=== PATIENT | male | born 1970 ===

== ENCOUNTER 2016-11-11 15:56 | Emergency (ER) | payer BC ==
[2016-11-11 16:10] VITALS: BP 131/65
[2016-11-11] MEDS ORDERED: Tetan/Diph/Pertus SYR(Tdap)* 0.5 ML SYR(BOOSTRIX) use SYR IM ONE (16:50)
--- NOTE | 2016-11-11 16:52 | ED ---
Skin Complaint - History of Current Complaint Chief Complaint: UCSkin Time Seen by Provider: 11/11/16 16:43 Stated Complaint: ANKLE PUNCTURE PRASANNA NAIL Hx Obtained From: Patient - scraped inside of R ankle on prasanna nail today Onset/Duration: Started Hours Ago - 2 Skin Location: Foot - R ankle Aggravating Symptom(s): Nothing Alleviating Symptom(s): Nothing Associated Signs & Symptoms: Negative - Allergy/Home Medications Allergies/Adverse Reactions: Allergies Allergy/AdvReac Type Severity Reaction Status Date / Time No Known Allergies Allergy Verified 11/11/16 16:10 Home Medications: Home Medications NK [No Home Medications Reported] 11/11/16 [History Confirmed 11/11/16] PMH/Surg Hx/FS Hx/Imm Hx Previously Healthy: Yes - Immunization History Immunizations Up to Date: No Infectious Disease History: No Infectious Disease History: Denies: Traveled Outside the [place] in Last 30 Days - Family History Known Family History: Positive: None - Social History Occupation: Employed Full-time Lives: With Family Alcohol Use: None Substance Use Type: Reports: None Smoking Status (MU): Never Smoked Tobacco Review of Systems Constitutional: Negative Cardiovascular: Negative Respiratory: Negative Positive: Other - PW Neurological: Negative Psychological: Normal All Other Systems Reviewed And Are Negative: Yes Physical Exam Triage Information Reviewed: Yes Vital Signs On Initial Exam: Initial Vitals Temp Pulse Resp BP Pulse Ox 97.9 F 65 12 131/65 100 11/11/16 16:05 11/11/16 16:05 11/11/16 16:05 11/11/16 16:05 11/11/16 16:05 Vital Signs Reviewed: Yes Appearance: Positive: Well-Appearing, No Pain Distress, Well-Nourished Skin: Positive: Other - small superficial abrasion medial R ankle Respiratory/Lung Sounds: Positive: Clear to Auscultation Cardiovascular: Positive: Normal Psychiatric: Positive: Normal Diagnostics - Vital Signs Vital Signs Temp Pulse Resp BP Pulse Ox 11/11/16 16:05 97.9 F 65 12 131/65 100 - Laboratory Lab Statement: Any lab studies that have been ordered have been reviewed, and results considered in the medical decision making process. Course/Dx - Differential Diagnoses - Skin Complaint Differential Diagnoses: Other - PW, abrasion - Diagnoses Provider Diagnoses: Abrasion, right ankle, initial encounter Discharge - Discharge Plan Condition: Good Disposition: HOME Patient Education Materials: Abrasion (ED), Diphtheria/Acellular Pertussis/ Tetanus Vaccine (By injection) Additional Instructions: keep wound clean and dry report signs of infection
== END 2016-11-11 17:34 | disposition home or self-care (01) ==
LOC: UCEAST 15:56
DX: S90.511A Abrasion, right ankle, initial encounter (principal); X58.XXXA Exposure to other specified factors, initial encounter
CPT/HCPCS: 90471; 90715; 99201; G0463

== ENCOUNTER 2017-12-24 15:25 | Emergency (ER) | payer BC ==
[2017-12-24 15:41] VITALS: BP 117/72
--- NOTE | 2017-12-24 16:13 | UC ---
Hand/Wrist HPI - HPI Summary HPI Summary: 47 yo male presents with a LEFT 5th finger injury. He tells me that earlier today he was working at home and was moving a concrete block when he squished his left pinky finger between this a rock. Sustained a laceration here. He bandaged the area and continued with his day. Last tetanus was within the last 2 years. Denies numbness or tingling. - History Of Current Complaint Chief Complaint: UCUpperExtremity Stated Complaint: FINGER INJURY Time Seen by Provider: 12/24/17 16:13 Hx Obtained From: Patient Onset/Duration: Sudden Onset Severity Initially: Moderate Severity Currently: Mild Pain Intensity: 2 Pain Scale Used: 0-10 Numeric - Allergies/Home Medications Allergies/Adverse Reactions: Allergies Allergy/AdvReac Type Severity Reaction Status Date / Time No Known Allergies Allergy Verified 12/24/17 15:41 PMH/Surg Hx/FS Hx/Imm Hx - Additional Past Medical History Additional PMH: None - Surgical History Surgical History: None - Family History Known Family History: Positive: None - Social History Occupation: Employed Full-time Lives: With Family Alcohol Use: None Substance Use Type: None Smoking Status (MU): Never Smoked Tobacco - Immunization History Most Recent Tetanus Shot: 11/11/16 Review of Systems Constitutional: Negative Skin: Other - Laceration left 5th digit Respiratory: Negative Cardiovascular: Negative Neurovascular: Negative Musculoskeletal: Negative Neurological: Negative Psychological: Negative All Other Systems Reviewed And Are Negative: Yes Physical Exam - Summary Physical Exam Summary: GENERAL: NAD. WDWN. No pain distress. SKIN: LEFT 5th digit: dorsal aspect overlying the PIP there is a flap like laceration in a V shape 1.0cm in size. No bony or tendon involvement. On the ventral aspect there is a 5mm puncture laceration below the PIP with exposed subcutaneous tissue. No bony or tendon involvement. CHEST: No accessory muscle use. Breathing comfortably and in no distress. CV: Pulses intact. Cap refill <2seconds MSK: Left 5th digit: FROM at DIP, PIP, and MCP without pain. NEURO: Alert. Sensations intact left hand and 5th digit. PSYCH: Age appropriate behavior. Triage Information Reviewed: Yes Vital Signs: Initial Vital Signs Temp 98.2 F 12/24/17 15:36 Pulse 77 12/24/17 15:36 Resp 16 12/24/17 15:36 BP 117/72 12/24/17 15:36 Pulse Ox 98 12/24/17 15:36 Vital Signs Reviewed: Yes Hand/Wrist Course/Dx - Course Course Of Treatment: XR: IMPRESSION: NO ACUTE OSSEOUS INJURY. IF SYMPTOMS PERSIST, RECOMMEND REPEAT IMAGING. A time out was performed, witnessed, and signed. The area was irrigated with 500mL sterile saline. 2mL of 2% lidocaine without epi was administered as a digital block and good anesthetization was achieved. In the usual sterile fashion, FOUR 5-0 prolene interrupted sutures were placed on the dorsal surface and TWO 5-0 prolene interrupted sutures were placed on the ventral wound. The wound was bandaged with telfa and tubgauze. Pt tolerated procedure well. - Differential Dx/Diagnosis Provider Diagnoses: Laceration left 5th digit. Crush injury left 5th digit Discharge - Sign-Out/Discharge Documenting (check all that apply): Patient Departure All imaging exams completed and their final reports reviewed: Yes - Discharge Plan Condition: Stable Disposition: HOME Patient Education Materials: Care For Your Stitches (DC), Laceration (ED) Referrals: No Primary Care Phys,NOPCP [Primary Care Provider] - Additional Instructions: If you develop a fever, shortness of breath, chest pain, new or worsening symptoms - please call your PCP or go to the ED. 1) Please keep the area bandaged, clean, dry, and intact for the next 24- 48hours. 2) If you develop a fever, colored or thick discharge, increased pain or swelling - please call your PCP or go to the ED. 3) Please return in 10 days to have your SIX sutures removed. - Billing Disposition and Condition Condition: STABLE Disposition: Home - Attestation Statements Provider Attestation: I was available for consult. This patient was seen by the EITAN. The patient was not presented to, seen by, or examined by me. -Keshawn
[2017-12-24] MEDS ORDERED: Lidocaine 2% PF * 5 ML VIAL INJ ONE (16:27)
--- NOTE | 2017-12-24 18:03 | RAD ---
HISTORY: Crush COMPARISONS: None VIEWS: 3 , Frontal, lateral, and oblique views of the fifth digit of the left hand FINDINGS: BONE DENSITY: Normal. BONES: There is no displaced fracture. JOINTS: There is no arthropathy. ALIGNMENT: There is no dislocation. SOFT TISSUES: Unremarkable. OTHER FINDINGS: None. IMPRESSION: NO ACUTE OSSEOUS INJURY. IF SYMPTOMS PERSIST, RECOMMEND REPEAT IMAGING.
== END 2017-12-24 18:35 | disposition home or self-care (01) ==
LOC: UCEAST 15:25
CPT/HCPCS: 12001; 73140; 99211; G0463

== ENCOUNTER 2018-01-04 12:45 | Emergency (ER) | payer BC ==
[2018-01-04 13:16] VITALS: BP 110/65
--- NOTE | 2018-01-04 13:34 | UC ---
HPI Wound/Suture Re-check - HPI Summary HPI Summary: HAD SUTURES PLACED LEFT 5TH FINGER 12/24/17. HERE FOR REMOVAL. LACERATION HEALED WELL. NO DRAINAGE, REDNESS OR TENDERNESS. - History Of Current Complaint Chief Complaint: UCLaceration Stated Complaint: STITCH REMOVAL Time Seen by Provider: 01/04/18 13:22 Hx Obtained From: Patient Severity: Mild Pain Intensity: 0 Pain Scale Used: 0-10 Numeric - Allergies/Home Medications Allergies/Adverse Reactions: Allergies Allergy/AdvReac Type Severity Reaction Status Date / Time No Known Allergies Allergy Verified 01/04/18 13:16 PMH/Surg Hx/FS Hx/Imm Hx Previously Healthy: Yes - Surgical History Surgical History: None - Family History Known Family History: Positive: None - Social History Alcohol Use: None Substance Use Type: None Smoking Status (MU): Never Smoked Tobacco - Immunization History Most Recent Tetanus Shot: 11/11/16 Review of Systems Constitutional: Negative Skin: Other - HEALING LACERATION LEFT 5TH FINGER Respiratory: Negative Cardiovascular: Negative Gastrointestinal: Negative All Other Systems Reviewed And Are Negative: Yes Physical Exam Triage Information Reviewed: Yes Appearance: Well-Appearing, No Pain Distress, Well-Nourished Vital Signs: Initial Vital Signs Temp 97 F 01/04/18 13:14 Pulse 72 01/04/18 13:14 Resp 16 01/04/18 13:14 BP 110/65 01/04/18 13:14 Pulse Ox 100 01/04/18 13:14 Vital Signs Reviewed: Yes Eyes: Positive: Conjunctiva Clear ENT: Positive: Hearing grossly normal Neck: Positive: Supple Respiratory: Positive: No respiratory distress, No accessory muscle use Cardiovascular: Positive: Pulses Normal Abdomen Description: Positive: Soft Musculoskeletal: Positive: No Edema Neurological: Positive: Alert Psychological: Positive: Age Appropriate Behavior Skin: Positive: Other - LACERATION WELL HEALED. C/D/I. NON TENDER. NO DRAINAGE. Negative: rashes Course/Dx - Differential Dx - Laceration/Wound Provider Diagnoses: SUTURE REMOVAL Discharge - Sign-Out/Discharge Documenting (check all that apply): Patient Departure All imaging exams completed and their final reports reviewed: No Studies - Discharge Plan Condition: Stable Disposition: HOME Patient Education Materials: Stitches Removal (ED) Referrals: No Primary Care Phys,NOPCP [Primary Care Provider] - Additional Instructions: WOUND IS WELL HEALED. CONTINUE TO BE CAREFUL WITH THE FINGER FOR THE NEXT FEW WEEKS THE SKIN WILL STILL BE WEAK FOR A WHILE. CALL THE NUMBER BELOW FOR ASSISTANCE IN ESTABLISHING WITH A PCP An additional resource available to assist in finding the appropriate physician for your health care needs is [facility] ([facility]). You may contact them by calling [phone]. - Billing Disposition and Condition Condition: STABLE Disposition: Home
== END 2018-01-04 13:35 | disposition home or self-care (01) ==
LOC: UCEAST 12:45
DX: S61.217D Laceration without foreign body of left little finger without damage to nail, subsequent encounter (principal); X58.XXXD Exposure to other specified factors, subsequent encounter